=== PATIENT | female | born 1995 | race Two or more races ===

== ENCOUNTER 2025-06-04 21:07 | Emergency (ER) | payer MEDICAID, SELFPAY ==
[2025-06-04 21:08] VITALS: BMI 26.6
--- NOTE | 2025-06-04 22:07 | PC.NURSE ---
PT DID NOT ANSWER WHEN NAME WAS CALLED AND WAS NOT FOUND OUTSIDE.
--- NOTE | 2025-06-04 22:23 | PC.NURSE ---
PT CALLED BACK FROM [facility] NO ANSWER
--- NOTE | 2025-06-04 23:08 | PC.NURSE ---
NO ANSWER FOR RME
== END 2025-06-04 23:09 | disposition left against medical advice (07) ==
DX: Z53.21 Procedure and treatment not carried out due to patient leaving prior to being seen by health care provider (principal)
CPT/HCPCS: 99281